=== PATIENT | male | born 1975 | race Caucasian/White ===

== ENCOUNTER 2016-09-07 07:25 | Day surgery (SDC) | payer BC ==
[~2016-09-07 07:25] MED LIST: Lactated Ringers 1,000 ML IV SCH
--- NOTE | 2016-09-07 07:57 | PCM.SN ---
- Free Text/Narrative Note: Pt was examined and the chart reviewed there are no changes to the H+P.
[2016-09-07] MEDS ORDERED: fentaNYL 100 MCG/2 ML SDV IV ONE (09:00)
[2016-09-07] MEDS ORDERED: Midazolam 1 MG/ML 2 ML SDV IV ONE (09:00)
[2016-09-07] MEDS ORDERED: Lidocaine 2% 100 MG/5 ML Syringe IVPUSH ONE (09:00)
[2016-09-07] MEDS ORDERED: Propofol 200 MG/20 ML SDV IV ONE (09:00)
--- NOTE | 2016-09-07 09:23 | PCM.OPNOTE ---
- General Post-Op/Procedure Note Date of Surgery/Procedure: 09/07/16 Operative Procedure(s): egd with bx Findings: small hiatal hernia mild esophagitis Pre Op Diagnosis: gerd Post-Op Diagnosis: Same Anesthesia Technique: MNOICA Primary Surgeon: Stone King Anesthesia Provider: Mira Stallworth Pathology: distal esophagus Complications: None Condition: Good Free Text/Narrative:: see dictation
[2016-09-07 10:03] VITALS: BP 121/72
--- NOTE | 2016-09-07 12:59 | OR ---
DATE OF OPERATION: 09/07/2016 SURGEON: Stone King MD PROCEDURE PERFORMED: Esophagogastroduodenoscopy with cold forceps biopsy. PREOPERATIVE DIAGNOSIS: Esophagitis, gastroesophageal reflux disease. POSTOPERATIVE DIAGNOSIS: Esophagitis, gastroesophageal reflux disease. INDICATIONS FOR PROCEDURE: This 40-year-old white male presents with a history of gastroesophageal reflux disease. He never had an upper endoscopy. He was offered and accepted the same. DESCRIPTION OF PROCEDURE: After an excellent IV sedation was administered, the bite block was inserted. The flexible endoscope was passed without difficulty down the patient's esophagus into the stomach. Stomach was insufflated. The scope was passed through the pylorus to the second portion of duodenum and slowly withdrawn. The following findings were noted. Duodenum was unremarkable. Stomach had small hiatal hernia. GE junction measured at 40 cm. Mild erythema noted. Biopsies were taken. The remainder of the esophageal exam was unremarkable. The stomach was deflated. Scope was removed. The patient tolerated the procedure well and was taken to recovery room in good condition. /[id number] /MODL
== END 2016-09-07 10:20 | disposition home or self-care (01) ==
LOC: FB.SDS 07:25
PROVIDERS: ATTEND Surgery
DX: K20.8 Other esophagitis (principal); Z79.899 Other long term (current) drug therapy; Z87.891 Personal history of nicotine dependence
CPT/HCPCS: 43239; 88305; J2250; J2704; J3010; J7120